=== PATIENT | female | born 1965 | race Caucasian/White ===

== ENCOUNTER 2023-03-12 11:26 | Inpatient (IN) | payer MEDICARE, OTHER ==
[~2023-03-12] VITALS: Ht 162.6 cm; Wt 141.0 kg
[2023-03-12] MEDS ORDERED: Cortef5 MG PO (12:00)
[2023-03-12] MEDS ORDERED: HUMALOG100 UNIT/1 SC (12:00)
[2023-03-12] MEDS ORDERED: INSULANI SC (12:03)
[2023-03-12] MEDS ORDERED: METOPROLOL SUCC25 MG PO (12:03)
[2023-03-12] MEDS ORDERED: HYDROCODONE-AC1 EA10 (12:04)
[2023-03-12] MEDS ORDERED: TAMO10 PO (12:04)
[2023-03-12 12:32] LABS: BASOPHILS ABSOLUTE AUTO 0.06 K/mm3 (0.00-0.23); BASOPHILS PERCENT AUTO 1 % (0-2); EOSINOPHILS ABSOLUTE AUTO 0.07 K/mm3 (0.00-0.68); EOSINOPHILS PERCENT AUTO 1 % (0-6); Hematocrit 41.2 % (33.0-51.0); Hemoglobin 13.8 g/dL (11.5-16.0); IMMATURE GRAN ABSOLUTE AUTO 0.03 K/mm3 (0.00-0.10); IMMATURE GRAN PERCENT AUTO 0 % (0-1); LYMPHOCYTES ABSOLUTE AUTO 1.83 K/mm3 (0.84-5.20); LYMPHOCYTES PERCENT AUTO 19 % (21-46); MONOCYTES ABSOLUTE AUTO 0.35 K/mm3 (0.16-1.47); MONOCYTES PERCENT AUTO 4 % (4-13); Mean Corpuscular HGB 29.7 pg (26.0-34.0); Mean Corpuscular HGB Conc 33.5 g/dL (31.5-36.5); Mean Corpuscular Volume 89 fL (80-100); Mean Platelet Volume 9.1 fL (9.1-12.4); NEUTROPHILS ABSOLUTE AUTO 7.25 K/mm3 (1.96-9.15); NEUTROPHILS PERCENT AUTO 76 % (41-73); Platelet Count 315 K/mm3 (150-400); RDW Coefficient Variation 11.8 % (11.7-14.2); RDW Standard Deviation 37.9 fL (35.1-46.3); Red Blood Cell Count 4.65 M/mm3 (3.80-5.20); White Blood Cell Count 9.59 K/mm3 (4.00-11.30)
[2023-03-12 12:51] LABS: Albumin, Blood 3.2 g/dL (3.4-5.0); Bilirubin, Total 0.3 mg/dL (0.1-1.0); Bun/Creatinine Ratio 25.6 (12.0-20.0); Calcium, Blood 8.7 mg/dL (8.5-10.1); Creatinine, Blood 0.7 mg/dL (0.40-1.00); Globulin, Blood 3.2 g/dL (2.2-4.0); Potassium, Blood 3.9 mmol/L (3.5-5.5); Total Protein, Blood 6.4 g/dL (6.4-8.2)
[2023-03-12 16:39] LABS: International Normalized Ratio 0.97; Prothrombin Time Results 10.2 Sec (9.7-11.5)
[2023-03-12 18:12] LABS: Appearance, CSF Clear (Clear); Color, CSF No Color (No Color); RBC Count, CSF 1 /mm3 (0-0); WBC Count, CSF 1 /mm3 (0-5)
[2023-03-12 18:38] LABS: Glucose, CSF 86 mg/dL (40-70)
[2023-03-12] MEDS ORDERED: OCUFLOX511 BOTHEARS (18:48)
[2023-03-12 19:16] LABS: Cryptococcus Neoformans/Gattii Not Detected (NOT DETECT); Enterovirus Not Detected (NOT DETECT); Escherichia Coli K1 Not Detected (NOT DETECT); Haemophilus Influenza Not Detected (NOT DETECT); Herpes Simplex Virus 1 Not Detected (NOT DETECT); Herpes Simplex Virus 2 Not Detected (NOT DETECT); Human Herpesvirus 6 Not Detected (NOT DETECT); Human Parechovirus Not Detected (NOT DETECT); Listeria Monocytogenes Not Detected (NOT DETECT); Neisseria Meningitidis Not Detected (NOT DETECT); Streptococcus Agalactiae Not Detected (NOT DETECT); Streptococcus Pneumoniae Not Detected (NOT DETECT); Varicella Zoster Virus Detected (NOT DETECT)
[2023-03-12 22:47] VITALS: BP 111/56
[2023-03-13] MEDS ORDERED: Norco 7.5-3251 EACH (00:06)
[2023-03-13 03:09] VITALS: BP 106/64
[2023-03-13 05:41] LABS: BASOPHILS ABSOLUTE AUTO 0.01 K/mm3 (0.00-0.23); BASOPHILS PERCENT AUTO 0 % (0-2); EOSINOPHILS PERCENT AUTO 0 % (0-6); Hematocrit 40.4 % (33.0-51.0); Hemoglobin 13.6 g/dL (11.5-16.0); Mean Corpuscular HGB 29.6 pg (26.0-34.0); Mean Corpuscular HGB Conc 33.7 g/dL (31.5-36.5); Mean Corpuscular Volume 88 fL (80-100); Mean Platelet Volume 9.5 fL (9.1-12.4); Platelet Count 294 K/mm3 (150-400); RDW Coefficient Variation 11.8 % (11.7-14.2); RDW Standard Deviation 37.6 fL (35.1-46.3); White Blood Cell Count 9.58 K/mm3 (4.00-11.30)
[2023-03-13 05:44] LABS: IMMATURE GRAN ABSOLUTE AUTO 0.03 K/mm3 (0.00-0.10); IMMATURE GRAN PERCENT AUTO 0 % (0-1); LYMPHOCYTES ABSOLUTE AUTO 0.95 K/mm3 (0.84-5.20); LYMPHOCYTES PERCENT AUTO 10 % (21-46); MONOCYTES ABSOLUTE AUTO 0.05 K/mm3 (0.16-1.47); MONOCYTES PERCENT AUTO 1 % (4-13); NEUTROPHILS ABSOLUTE AUTO 8.54 K/mm3 (1.96-9.15); NEUTROPHILS PERCENT AUTO 89 % (41-73)
[2023-03-13 06:03] LABS: Albumin/Globulin Ratio 0.9 (0.8-1.8); Bilirubin, Total 0.4 mg/dL (0.1-1.0); Bun/Creatinine Ratio 26.2 (12.0-20.0); Calcium, Blood 8.7 mg/dL (8.5-10.1); Creatinine, Blood 0.65 mg/dL (0.40-1.00); Globulin, Blood 3.3 g/dL (2.2-4.0); Potassium, Blood 4.3 mmol/L (3.5-5.5); Total Protein, Blood 6.3 g/dL (6.4-8.2)
--- NOTE | 2023-03-13 06:13 | NUR ---
TONEY WAS QUITE PAINFUL MOST OF THE EVENING AFTER HER ARRIVAL TO THE FLOOR. PRIMARILY HER NECK AND R. EAR. FENTANYL GIVEN PER ORDER WITH BRIEF PERIOD OF RELIEF, THEN AN ICE PACK OVER THE EAR WITH MINIMAL RELIEF. REQUEST WAS MADE TO INCREASE PATIENT DIET TO CLEAR FROM NPO. PATIENT APPRECIATED THIS AND ALSO RECEIVED A ONE TIME ORDER FOR DILAUDID FOR PAIN RELIEF. MRI PAPERS WITH PATIENT WHO ONLY WANTED TO SLEEP AFTER SHE FINALLY GOT COMFORTABLE. SHE WILL FILL OUT IN AM.
[2023-03-13 08:36] VITALS: BP 128/71
--- NOTE | 2023-03-13 14:21 | NUR ---
PER DR. ROCK, OK TO ADVANCE DIET TO ADA LONG PT ALERT AND ABLE TO EAT SAFELY
[2023-03-13 15:19] VITALS: BP 150/81
--- NOTE | 2023-03-13 16:09 | NUR ---
PT COMPLAINS OF NOT HAVING ANY ENERGY AND FEELING LIKE SHE IS NOT "ON CORTISOL" LIKE USUAL AT HOME. CONSULTED WITH DR. ROCK. PT IS CURRENTLY TAKING MORE THAN HOME DOSE. PT EATING. WILL CHECK IN WITH PT AFTER SHE EATS TO SEE IF SHE IS FEELING BETTER.
--- NOTE | 2023-03-13 18:24 | NUR ---
SHIFT SUMMARY PT IS ALERT AND ORIENTED X4. SLEPT FOR MOST OF THE SHIFT. PT REPORTS FEELING TIRED AND SHOOTING PAIN IN R EAR, FACE, BUCCAL MUCOSA. TREATED PAIN PER EMAR. BASELINE CONTINENT, UNABLE TO GET TO BATHROOM WITHOUT ASSISTANCE HAS URGENCY. PUREWICK IN PLACE. NO ACUTE CHANGES THIS SHIFT. PT REPORTS ANXIETY ABOUT CURRENT ILLNESS AND EFFECT IT MAY HAVE WITH HER DIAGNOSIS OF ADDISONS. CONCERNED ABOUT GETTING ENOUGH STERIODS WHILE SICK AND IN HOSPITAL. DISCUSSED CONCERN WITH DR. ROCK.
[2023-03-13 19:41] VITALS: BP 128/62
[2023-03-14 02:39] VITALS: BP 140/67
--- NOTE | 2023-03-14 07:38 | NUR ---
TONEY CONTINUES TO BE PAINFUL ON THE RIGHT SIDE OF HER FACE, AND ESPECIALLY HER RIGHT EAR. TORADOL AND FENTANYL GIVEN THROUGH THE NIGHT FOR COMFORT. SPOKE WITH DAUGHTER ASHLY OVERNIGHT SHE WAS VERY CONCERNED ABOUT HER MOM'S HEALTH. HER NUMBER IS [phone]. 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
[2023-03-14 07:54] VITALS: BP 145/78
--- NOTE | 2023-03-14 16:26 | NUR ---
SHIFT SUMMARY NO ACUTE CHANGES DURING SHIFT. PT ALERT AND ORIENTED, CALLS APPROPRIATELY. PT WITH CONTINUED PAIN TO FACE AND BACK, PRN AND SCHEDULED MEDICATIONS ADMINISTERED PER EMAR. PT REMAINS ON RA, INDEPENDENT IN ROOM. PT TO CONTINUE IV STEROIDS AND ANTIVIRAL. WILL CONTINUE TO MONITOR. CALL LIGHT WITHIN REACH.
[2023-03-14 21:31] VITALS: BP 139/57
[2023-03-14] MEDS ORDERED: VITAMIN D5000 UNIT PO (22:23)
[2023-03-14] MEDS ORDERED: CLINDAMYCIN PHO40 G1 TOP (22:24)
[2023-03-14] MEDS ORDERED: Phentermine HCl15 MG PO (22:25)
[2023-03-14] MEDS ORDERED: OZEMPIC2 MG/0.75 SC (22:27)
[2023-03-14] MEDS ORDERED: PRILOSEC OTC20 MG PO (22:28)
[2023-03-14] MEDS ORDERED: VENL75ER PO (22:30)
[2023-03-14] MEDS ORDERED: FOSAMAX70 MG PO (22:30)
[2023-03-14] MEDS ORDERED: Hydrocortisone10 MG PO (22:32)
[2023-03-14] MEDS ORDERED: HYDCOR10 PO (22:32)
[2023-03-14] MEDS ORDERED: ARMODAFINIL250 MG PO (22:33)
[2023-03-14] MEDS ORDERED: HYDROXYZINE PAM25 MG PO (22:36)
[2023-03-14] MEDS ORDERED: EZETIMIBE10 M6 PO (22:37)
[2023-03-14] MEDS ORDERED: Norco 7.5-3251 EACH PO (22:37)
[2023-03-14] MEDS ORDERED: CEPH500 PO (22:39)
[2023-03-15 05:27] VITALS: BP 126/78
--- NOTE | 2023-03-15 05:30 | NUR ---
SHIFT SUMMARY PT LAYING IN BED DURING BEDSIDE ROUNDS- PT REQUESTED PAIN MEDICATION WITH HS MEDICATIONS FOR NECK AND BACK PAIN, PUREWICK IN PLACE D/T WEAKNESS- 0330 CALL FROM TELE- PT PUJA RATE DOWN TO 30-40BPM- PT ASLEEP- AWAKENED AND PT DENIES PAIN/SOB- PER CHART PT PUJA PREVIOUS NIGHT WHILE SLEEPING- WILL CONTINUE TO MONITOR- BED LOW POSITION, CALL LIGHT WITHIN REACH
[2023-03-15 08:08] VITALS: BP 130/71
[2023-03-15 15:34] VITALS: BP 130/67
--- NOTE | 2023-03-15 18:16 | NUR ---
SHIFT SUMMARY: PT A/O X 4 ONE ASSIST WITH WALKER. PT WAS VERY PAINFUL TODAY IN LOWER BACK. PT REPORTED FENTANYL WAS NOT EFFECTIVE. PERCOCET GIVEN PER ORDER AND PT REPORTED BACK PAIN WAS STILL VERY PAINFUL. PT WAS OBSERVED AFTER TAKING THE PERCOCET TO BE VERY SLEEPY, SNORING LIGHTLY WHEN CHECKED ON. PT WOULD WAKE UP AND ANSWER QUESTIONS BUT WOULD FALL RIGHT BACK TO SLEEP. PT DID NOT REQUEST ANY FURTHER PAIN MEDICATIONS AFTER TAKING PERCOCET. PT REQUESTED A TRAPEZE FOR MOBILITY. PLACED A PT EVAL PER DR. VERNON ORDER TO ADDRESS MOBILITY CONCERNS. PT REPORTED TO CARE MANAGEMENT SHE USES A CPAP AT NIGHT. PLACED ORDER AND NOTIFIED RT OF NEED FOR SET UP FOR TONIGHT. PT BS IN THE MID TO HIGH 300'S ALL DAY.
[2023-03-15 19:55] VITALS: BP 128/72
[2023-03-16 04:22] VITALS: BP 151/82
--- NOTE | 2023-03-16 06:28 | NUR ---
SHIFT SUMMARY PT LAYING IN BED DURING BEDSIDE ROUNDS, SPOUSE IN ROOM - PT REQUESTED TYLENOL WITH HS MEDS - PT REPORTS PAIN NOT TOLERABLE WITH MOVEMENT -2100 CBG = 310, NOV COVERAGE, ORDER FOR CPAP AND BELLPERSON - 0130 ORDER FOR OXYGEN IN CPAP- PT OXYGEN SATS DROPPING DOWN IN THE LOW 80S WHILE ASLEEP ON CPAP- PT LAYING COMPLETELY FLAT D/T BACK PAIN WHILE UP-. GAVE PERCOCET FOR INCREASED BACK PAIN- PT HAS PUREWICK IN PLACE D/T IMMOBILITY SUCTIONING CLEAR YELLOW URINE - AIRBORNE PRECAUTIONS IN PLACE -BED LOW POSITION, CALL LIGHT WITHIN REACH
[2023-03-16 07:35] VITALS: BP 139/82
--- NOTE | 2023-03-16 10:37 | NUR ---
PATIENT REQUESTED TO HAVE HYDROCODONE INSTEAD OF PERCOCET, STARTED ON HYDROCODONE, PATIENT DENIES NEEDS AND THEN HAS MULTIPLE NEEDS, CALL LIGHT WITH IN REACH
--- NOTE | 2023-03-16 15:45 | NUR ---
PATIENT TOOK A SHOWER, FRIEND AT BEDSIDE VISITING
[2023-03-16 15:53] VITALS: BP 132/76
--- NOTE | 2023-03-16 17:19 | NUR ---
ALERT AND ORIENTED, CONFUSED AT TIMES, PATIENT EDUCATED ON ADA DIET AND FOOD CHOICES, CLUSTER CARE FOR A ISOLATION ROOM, HOME TREATMENT PLAN, MEDICATED FOR PAIN, SHOWERED TODAY, WAS ABLE TO AMBULATE EASILY. CALL LIGHT WITH IN REACH, NO ACUTE CHANGES
--- NOTE | 2023-03-16 22:12 | NUR ---
CBG 427. HOSPITALIST MICHEAL AU ORDERED HUMALOG 7 UNITS X ONE. REPORTS ON IV SOLU-MEDROL AND GLARGINE TO START IN AM. KAITY
[2023-03-17 02:54] VITALS: BP 126/68
--- NOTE | 2023-03-17 04:43 | NUR ---
SHIFT SUMMARY PATIENT HAD ELEVATED CBG 427. HOSPITALIST MICHEAL AU ORDERED HUMALOG 7 UNITS X ONE AND REPORTED GLARGINE WILL START IN AM. ON IV SOLU-MEDROL. ALERT AND ORIENTED AND ONE ASSIST TO BSC. ON ROOM AIR. DENIES CHEST PAIN, SOB, AND N/V. MEDICATED FOR BACK PAIN WITH HYDROCODONE X ONE. POWERGLIDE LEFT UPPER ARM INTACT. IV ABX INFUSED. AIRBORNE PRECAUTIONS. CALL LIGHT IN REACH. BED IN LOWEST POSITION. WILL CONTINUE TO MONITOR UNTIL DAY SHIFT NURSE ASSUMES CARE.
[2023-03-17 08:43] VITALS: BP 129/89
[2023-03-17] MEDS ORDERED: Norco 7.5-3251 EACH PO (13:20)
[2023-03-17] MEDS ORDERED: VALA500 PO (13:21)
[2023-03-17] MEDS ORDERED: Acetaminophen650 M1 PO (13:21)
[2023-03-17] MEDS ORDERED: GABA300 PO ×2 (13:22)
[2023-03-17] MEDS ORDERED: ONDA4ODT MM (13:23)
--- NOTE | 2023-03-17 15:58 | NUR ---
LATE ENTRY: DISCHARGE SUMMARY: PT DISCHARGED HOME TODAY. PT EDUCATED ON DISCHARGE PLAN AND MEDICATIONS. PT REQUESTED RECORDS BE FAXED TO [facility]O DR. NURYS MCDANIEL SHE HAS APPT ON TUESDAY. MD NOT IN OUR SYSTEM. FAXED TEST RESULTS, LABS, PROGRESS NOTES PER REQUEST TO [phone]. ASSISTED PT WITH PACKING BELONGINGS. PT ESCORTED TO POV VIA WC WITH MASK ON AND SHE LEFT WITH FRIEND (SIGNIFICANT OTHER PIOTR).
== END 2023-03-17 15:00 | disposition home or self-care (01) | DRG 866 ==
LOC: ER 11:26 → MEDS 21:08
PROVIDERS: Student in an Organized Health Care Education/Training Program; ADMIT Internal Medicine
PROC: 009U3ZZ Drainage of Spinal Canal, Percutaneous Approach (ICD-10-PCS; principal; 2023-03-12)
DX: B01.0 Varicella meningitis (principal); B02.8 Zoster with other complications; E27.1 Primary adrenocortical insufficiency; B02.0 Zoster encephalitis; Z68.43 Body mass index [BMI] 50.0-59.9, adult; B01.11 Varicella encephalitis and encephalomyelitis; E11.9 Type 2 diabetes mellitus without complications; M54.2 Cervicalgia; I10 Essential (primary) hypertension; E66.01 Morbid (severe) obesity due to excess calories; H57.11 Ocular pain, right eye; M54.50 Low back pain, unspecified; M79.604 Pain in right leg; H60.91 Unspecified otitis externa, right ear; Z88.8 Allergy status to other drugs, medicaments and biological substances; Z79.4 Long term (current) use of insulin; Z79.891 Long term (current) use of opiate analgesic; Z79.899 Other long term (current) drug therapy; Z85.3 Personal history of malignant neoplasm of breast; Z90.10 Acquired absence of unspecified breast and nipple
CPT/HCPCS: 36415; 62270; 62328; 70450; 80053; 82945; 82947; 83880; 84157; 85025; 85610; 85730; 87070; 87205; 87483; 89051; 94660; 94762; 96365-59; 96366-59; 96367-59; 96375-59; 96376-59; 97110; 97116; 97161; 99284-25; A9270; C1751; J0133; J0696; J1170; J1650; J1815; J1885; J2405; J2765; J2930; J3010; J3370; J7030; J7040; J7050; J8499